=== PATIENT | male | born 1970 | race Hispanic/Latino ===

== ENCOUNTER 2021-03-07 18:47 | Emergency (ER) | payer MEDICARE ==
[2021-03-07] MEDS ORDERED: TETANUS/DIPHTHERIA TOXOID [ADULT] 0.5 ML VIAL IM ONE (22:25)
== END 2021-03-07 22:35 | disposition home or self-care (01) ==
LOC: EDH 18:47
DX: I83.892 Varicose veins of left lower extremity with other complications (principal); S91.012A Laceration without foreign body, left ankle, initial encounter; E11.9 Type 2 diabetes mellitus without complications; X58.XXXA Exposure to other specified factors, initial encounter; Y93.89 Activity, other specified; Y92.008 Other place in unspecified non-institutional (private) residence as the place of occurrence of the external cause; Y99.8 Other external cause status
CPT/HCPCS: 90471; 90714